=== PATIENT | male | born 2000 | race Caucasian/White ===

== ENCOUNTER 2024-05-12 17:05 | Emergency (ER) | payer MEDICAID ==
[~2024-05-12] VITALS: Ht 185.4 cm; Wt 72.7 kg
[2024-05-12 17:42] VITALS: BP 123/80; PULSE 82; RESP 15; O2SAT 97
[2024-05-12] MEDS ORDERED: PENI500T2 PO (23:37)
[2024-05-12] MEDS ORDERED: IBUP-1984 PO (23:37)
[2024-05-12] MEDS: penicillin V potassium 500mg tablet PO STA (23:53)
[2024-05-12] MEDS: ibuprofen tablet 400 MG TABLET PO ONE (23:53)
[2024-05-13 00:13] VITALS: TEMP 98.7
== END 2024-05-13 00:16 | disposition home or self-care (01) ==
LOC: ER 17:06
DX: J02.9 Acute pharyngitis, unspecified (principal); Z88.2 Allergy status to sulfonamides; Z79.1 Long term (current) use of non-steroidal anti-inflammatories (NSAID)
CPT/HCPCS: 99283